=== PATIENT | female | born 1965 | race Caucasian/White ===

== ENCOUNTER 2019-01-05 16:40 | Emergency (ER) | payer OTHER ==
[2019-01-05 17:32] VITALS: BP 145/85; PULSE 77; TEMP 98.2; BMI 25.1
[2019-01-05] MEDS ORDERED: ACETAMINOPHEN 1000 MG/100 ML VIAL (NON FORMULARY) IVPB ONE (17:42)
[2019-01-05] MEDS ORDERED: ACETAMINOPHEN 325 MG TABLET (FP) PO ONE (17:50)
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
[2019-01-05] MEDS ORDERED: IBUPROFEN 600 MG TABLET (FP) PO ONE (20:23)
[2019-01-05 21:25] LABS: PH,URINE 5.5 (5.0-8.0); URINE APPEARANCE CLEAR; URINE BILIRUBIN NEGATIVE (NEGATIVE); URINE COLOR YELLOW; URINE GLUCOSE (UA) NEGATIVE (NEGATIVE); URINE KETONE NEGATIVE (NEGATIVE); URINE LEUK ESTERASE NEGATIVE (NEGATIVE); URINE NITRITE NEGATIVE (NEGATIVE); URINE PROTEIN NEGATIVE (NEGATIVE); URINE UROBILINOGEN 0.2 mg/dL (0.2-1.0)
--- NOTE | 2019-01-06 14:39 | EKG ---
Test Reason : Blood Pressure : / mmHG Vent. Rate : 062 BPM Atrial Rate : 062 BPM P-R Int : 170 ms QRS Dur : 096 ms QT Int : 388 ms P-R-T Axes : 002 023 028 degrees QTc Int : 393 ms NORMAL SINUS RHYTHM NORMAL ECG NO PREVIOUS ECGS AVAILABLE Confirmed by ALFREDITO TUCKER MD ([id number]) on 01/06/2019 2:39:24 PM Referred By: Confirmed By:ALFREDITO TUCKER MD
== END 2019-01-05 21:38 | disposition home or self-care (01) ==
LOC: JER 16:40
DX: Z04.1 Encounter for examination and observation following transport accident (principal); V43.52XA Car driver injured in collision with other type car in traffic accident, initial encounter; Y93.89 Activity, other specified; Y92.481 Parking lot as the place of occurrence of the external cause
CPT/HCPCS: 70450-TC; 71046-TC-FY; 72125-TC; 72128-TC; 72131-TC; 73110-TC-LT-FY; 73130-TC-LT-FY; 81003; 93005; 93010; 99282-25